=== PATIENT | male | born 2005 | race Two or more races ===

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

== ENCOUNTER 2024-02-01 12:42 | Outpatient (REF) | payer MEDICAID, SELFPAY | END 2024-02-01 12:43 | disposition home or self-care (01) | LOC: HO.MRI 12:42 | PROVIDERS: PCP Nurse Practitioner Primary Care; Visit Provider Physician Assistant | DX: Z13.89 Encounter for screening for other disorder (principal) ==

== ENCOUNTER 2024-02-14 17:36 | Emergency (ER) | payer SELFPAY ==
--- NOTE | ~2024-02-14 | XR_ITS ---
CLINICAL HISTORY: trauma 7 view, chest and left ribs Comparison: CR - CHEST 2 VIEWS - 10/29/18 11:44 EDT Findings: Bones intact. No dislocations. The lungs are unremarkable. No pneumothorax. IMPRESSION: 1. No acute fractures. This document has been electronically signed by: Rei Mabry MD on 02/14/2024 19:20:00
--- NOTE | ~2024-02-14 | XR_ITS ---
CLINICAL HISTORY: fall, pain AP pelvis and two views of the left hip. Comparison: None Findings: No acute fracture or dislocation. No significant arthritic change. The soft tissues are unremarkable. No pelvic ring disruption. IMPRESSION: No acute findings. This document has been electronically signed by: Rei Mabry MD on 02/14/2024 19:20:27
--- NOTE | ~2024-02-14 | XR_ITS ---
CLINICAL HISTORY: trauma 4 view left knee Comparison: None Findings: No fractures or dislocations. No significant loss of joint space, osteophytes, or erosions. No joint effusion. No radiopaque foreign body. IMPRESSION: 1. No acute findings. This document has been electronically signed by: Rei Mabry MD on 02/14/2024 19:19:57
[2024-02-14 18:07] VITALS: BP 115/53; PULSE 72; RESP 18; TEMP 36.6; O2SAT 100; BMI 28.4
--- NOTE | 2024-02-14 18:10 | ED_ITS ---
HPI - General Adult General Chief complaint: Fall Stated complaint: fell downstairs left leg pain Time Seen by Provider: 02/14/24 22:21 Source: patient Limitations: no limitations History of Present Illness ED Provider: Celestina Draper PA-C HPI narrative: 18-year-old male presents after fall. Patient states he slipped and fell down 6 stairs, landing on his left side. No loss consciousness no head strike. Related Data Previous Rx's ?Medication ?Instructions ?Recorded cyclobenzaprine 10 mg tablet 10 mg PO TID PRN muscle spasm #20 11/09/23 tabs ibuprofen 600 mg tablet 600 mg PO Q6H PRN pain #30 tabs 11/09/23 Allergies Allergy/AdvReac Type Severity Reaction Status Date / Time shrimp Allergy Unknown Verified 02/14/24 18:11 Seasonale Allergy Unknown Unknown Uncoded 11/17/23 09:52 Review of Systems Review of Systems: Yes all other systems are reviewed and are negative Constitutional: Constitutional: Denies fatigue and Denies fever(s) ENT: Denies neck pain Cardiovascular: Cardiovascular: Denies chest pain and Denies dyspnea Respiratory: Respiratory: Denies dyspnea Gastrointestinal: Gastrointestinal: Denies abdominal pain Musculoskeletal: Musculoskeletal: Reports back pain, Reports arthralgias, Denies joint swelling and Denies neck pain Endocrine: Endocrine: Denies fatigue [facility] Past Medical History Attestation statement: The following information was validated with the patient. Medical History No pertinent past medical history Social History Social History (Updated 11/09/23 @ 23:48 by Twila Pratt DO) Patient Tobacco Use Status: Never used Tobacco Advance Directives: No Advance Directives Information Provided: No Do you have a plan to hurt others: No Plan Physical Exam ED Vital Signs: Vital Signs - 24 hr 02/14/24 18:07 Temperature 97.9 F Pulse Rate 72 Respiratory Rate 18 Blood Pressure 115/53 L Pulse Oximetry 100 Oxygen Delivery Method Room Air BMI result Body Mass Index 28.4 Const Other: Alert well-appearing Orientation/consciousness: patient oriented x3 Resp Effort & Inspection: normal respiratory effort Cardio Other: Normal peripheral perfusion Skin Other: Warm dry no rash Neuro General: patient oriented x3, gait normal, no focal motor deficits and CN's II- XI intact bilaterally Extrem Other: Moves all extremities independently, ambulating normally Psych Other: Cooperative Course Course Course Narrative: RME, this is a rapid medical exam performed by Logan Cordero please refer to primary provider for complete H&P- 18-year-old male presents for evaluation of left-sided pain after falling down the stairs. He injured his left side/flank as well as his left knee/upper leg. Plan for x-rays Medical Decision Making Medical Decision Making MDM Narrative: 18-year-old male presents after fall. Patient states he slipped and fell down 6 stairs, landing on his left side. No loss consciousness no head strike. No chronic problems History: Per patient I have considered the following differential diagnoses: Fracture, dislocation, contusion Plan: X-rays obtained from triage no fractures dislocations patient just has contusions. We will send with home care instructions I have independently reviewed the following tests: X-ray: view, chest and left ribs Comparison: CR - CHEST 2 VIEWS - 10/29/18 11:44 EDT Findings: Bones intact. No dislocations. The lungs are unremarkable. No pneumothorax. IMPRESSION: 1. No acute fractures. This document has been electronically signed by: Rei Mabry MD on 02/14/2024 19:20:00 X-ray:P pelvis and two views of the left hip. Comparison: None Findings: No acute fracture or dislocation. No significant arthritic change. The soft tissues are unremarkable. No pelvic ring disruption. IMPRESSION: No acute findings. This document has been electronically signed by: Rei Mabry MD on 02/14/2024 19:20:27 X-ray: 4 view left knee Comparison: None Findings: No fractures or dislocations. No significant loss of joint space, osteophytes, or erosions. No joint effusion. No radiopaque foreign body. IMPRESSION: 1. No acute findings. This document has been electronically signed by: Rei Mabry MD on 02/14/2024 19:19:57 Discharge Plan Discharge Clinical Impression: Contusion Patient Disposition: Home, Self-Care Instructions: Bone Bruise (ED) Additional Instructions: The x-rays were all normal, there was no fracture no dislocation. You have contusions. See home care instructions. You can use tryc-evf-eovuxfu ibuprofen 600 mg taken every 6 hours with food, alternated with [id number] Tylenol 1000 mg taken every 8 hours. Follow up with your primary care provider as needed. Prescriptions: No Action cyclobenzaprine 10 mg tablet 10 mg PO TID PRN (Reason: muscle spasm) Qty: 20 0RF ibuprofen 600 mg tablet 600 mg PO Q6H PRN (Reason: pain) Qty: 30 0RF Stand Alone Forms: Work/School Release Print Language: Frisian
[2024-02-14 23:33] VITALS: BP 115/53; PULSE 72; RESP 18; TEMP 36.6; O2SAT 100
== END 2024-02-14 23:34 | disposition home or self-care (01) ==
PROVIDERS: Emergency Provider Emergency Medicine; PCP Nurse Practitioner Primary Care
DX: S80.02XA Contusion of left knee, initial encounter (principal); W10.8XXA Fall (on) (from) other stairs and steps, initial encounter; M25.562 Pain in left knee; R10.10 Upper abdominal pain, unspecified; Y93.89 Activity, other specified; Y92.9 Unspecified place or not applicable; Y99.9 Unspecified external cause status
CPT/HCPCS: 71101; 73502; 73564; 99282; 99283

== ENCOUNTER → 2024-02-14 18:11 | Outpatient (BNV) | payer MEDICAID, SELFPAY | PROVIDERS: PCP Nurse Practitioner Primary Care; Visit Provider Radiology Diagnostic Radiology | DX: R07.82 Intercostal pain (principal); M25.562 Pain in left knee; M25.552 Pain in left hip; W10.8XXA Fall (on) (from) other stairs and steps, initial encounter | CPT/HCPCS: 71101; 73502; 73564 ==